=== PATIENT | male | born 1990 | race Caucasian/White ===

== ENCOUNTER 2017-08-02 16:22 | Inpatient (IN) | payer OTHER ==
[~2017-08-02] VITALS: Ht 180.3 cm; Wt 78.0 kg
--- NOTE | 2017-08-02 17:55 | NUR ---
[id number] C/O SEVERE RIGHT FLANK PAIN STARTED 1 HR AGO RADIATING TO THE RIGHT HIP AND LEG. PT DESCRIBES PAIN 8/10 SHARP AND ACUTE IN NATURE. AAOX4. RESP EVEN AND UNLABORED. SKIN DRY WITH DRY LESSIONS NOTED. RESP EVEN AND UNLABORED. NO S/S OF ACUTE DISTRESS NOTED. VSS. AWAITING MD FOR EVAL.
--- NOTE | 2017-08-02 18:00 | NUR ---
ASSISTED FROM WAITING ROOM TO ER BED 09.
--- NOTE | 2017-08-02 18:01 | NUR ---
[id number] C/O SEVERE LEFT FLANK PAIN STARTED 1 HR AGO. FACIAL GRIMACING, GUARDING SITE. C/O 10/10 PAIN. GOWNED AND PLACED ON CONT MONITORING. ALL NEEDS ARE ATTENDED, KEPT WARM AND COMFORTABLE. PENDING ER MD ARROYO
[2017-08-02] MEDS ORDERED: KETOROLAC TROMETHAMINE INJ 30 MG/ML VIAL ONE (18:19)
[2017-08-02] MEDS ORDERED: ONDANSETRON HCL/PF 4 MG/2 ML VIAL ONE ×2 (18:19→20:39)
[2017-08-02] MEDS ORDERED: MORPHINE SULFATE INJ 4 MG/ML DISP.SYRIN ONE (18:20)
[2017-08-02 18:25] LABS: HEMATOCRIT 39 % (39-51); HEMOGLOBIN 13.6 g/dL (13.5-17.5); MEAN CORPUSCULAR HGB CONC 35 g/dl (31.0-36.0); MEAN CORPUSCULAR VOLUME 82 fL (80-96); PLATELET COUNT (AUTO) 347 /CMM (150-450); RDW COEFFICIENT OF VARIATION 13.3 (11.5-15.0); RED BLOOD CELL COUNT(AUTO) 4.73 MIL/uL (4.5-6.0)
[2017-08-02 18:28] LABS: WHITE BLOOD COUNT (AUTO) 30.3 K/uL (4.3-11.0)
[2017-08-02] MEDS ORDERED: IV NS 0.9% 1,000 ML BAG IV ONE ×2 (18:30)
[2017-08-02] MEDS ORDERED: ONDANSETRON HCL/PF 4 MG/2 ML VIAL IVP ONE (18:30)
[2017-08-02] MEDS ORDERED: MORPHINE SULFATE INJ 2 MG/ML DISP.SYRIN IV ONE (18:30)
[2017-08-02] MEDS ORDERED: KETOROLAC TROMETHAMINE INJ 30 MG/ML VIAL IV ONE (18:30)
[2017-08-02] MEDS ORDERED: PIPERACILLIN /TAZOBACTAM 3.375 G VIAL IV ONE (18:40)
[2017-08-02] MEDS ORDERED: PIPERACILLIN /TAZOBACTAM 3.375 G in IV D5W 50 ML IV ONE (19:00)
[2017-08-02 19:02] LABS: INR 1.41 (0.85-1.15)
[2017-08-02 19:33] LABS: BAND % (MANUAL) 15 % (0.0-5.0); LYMPHOCYTES % (MANUAL) 3 % (16-48); MONOCYTES % (MANUAL) 3 % (0-11.0); NEUTROPHILS % (MANUAL) 79 (42-76)
[2017-08-02 19:41] LABS: CALCIUM, SERUM 9.2 mg/dL (8.5-10.1); POTASSIUM 4.1 mmol/L (3.5-5.1)
[2017-08-02 19:47] LABS: ALBUMIN 3.6 g/dL (3.4-5.0); TOTAL PROTEIN, SERUM 8.4 g/dL (6.4-8.2)
[2017-08-02 20:04] LABS: APPEARANCE,URINE Slightly Cloudy (CLEAR); BILIRUBIN,URINE LARGE (NEGATIVE); BLOOD, URINE Negative Ery/uL (NEGATIVE); COLOR,URINE Amber (YELLOW); KETONES,URINE >=160 (NEGATIVE); LEUKOCYTE ESTERASE ,URINE Negative (NEGATIVE); NITRITE, URINE Negative (NEGATIVE); PROTEIN,URINE 100 mg/dl (NEGATIVE); UGLUCOSE Negative (NEGATIVE)
[2017-08-02] MEDS ORDERED: ONDANSETRON HCL/PF 4 MG/2 ML VIAL IV ONE (20:30)
[2017-08-02] MEDS ORDERED: HYDROMORPHONE INJ 0.5 MG/0.5 ML SYRINGE IV ONE (20:30)
[2017-08-02 20:34] LABS: RBC,URINE NONE SEEN /HPF (0-2)
[2017-08-02 20:35] LABS: BACTERIA,URINE Few /HPF (None Seen); MUCUS,URINE Moderate /LPF (None Seen); SQUAMOUS EPITHELIAL CELL,UR Few /HPF (None Seen)
[2017-08-02] MEDS ORDERED: HYDROMORPHONE INJ 2 MG/ML DISP.SYRIN ONE (20:39)
--- NOTE | 2017-08-02 20:44 | NUR ---
PT TO CT
--- NOTE | 2017-08-02 20:55 | NUR ---
PT BACK FROM CT, WENT TO THE RESTROOM.
[2017-08-02] MEDS ORDERED: VANCOMYCIN 1 GM in IV D5W 250 ML IV ONE (21:00)
[2017-08-02] MEDS ORDERED: VANCOMYCIN 1 GM VIAL ONE (21:20)
--- NOTE | 2017-08-02 22:38 | NUR ---
Patient is resting comfortably in bed with eyes closed. Easily aroused. VSS
--- NOTE | 2017-08-02 22:45 | NUR ---
RECRUITMENT ASSISTANT BEDSIDE
--- NOTE | 2017-08-02 23:29 | NUR ---
Patient is resting comfortably in bed with eyes closed. Easily aroused. VSS. No S/S of discomfort noted in pt.
--- NOTE | 2017-08-02 23:40 | NUR ---
BED 316-2
--- NOTE | 2017-08-02 23:49 | NUR ---
REPORT GIVEN TO AVE ARORA FOR ALLI.
[2017-08-02] MEDS ORDERED: IV D5W 1,000 ML IV PRN (23:50)
[2017-08-03] MEDS ORDERED: MAG HYDROX/AL HYDROX/SIMETH 30 ML UDC PO PRN
[2017-08-03] MEDS ORDERED: ONDANSETRON HCL/PF 4 MG/2 ML VIAL IVP PRN
[2017-08-03] MEDS ORDERED: MAGNESIUM HYDROXIDE 30 ML UDC PO PRN
--- NOTE | 2017-08-03 00:05 | NUR ---
ARTIST MANAGER NOTES PT ARRIVED ON TO THE UNIT AT 0005 VIA WHEELCHAIR. PT APPEARS TO BE ALTERED. PT COMPLAINTS OF RIGHT LOWER BACK PAIN FOR X3 DAYS. PT IS ALERT BUT SPEECH IS DELAYED. PT IS TELE MONITORED AT [facility]. PT HAS A RIGHT FOREARM #18 IV, INTACT AND PATENT. PT IS AMBULATORY. PT HAS SCROTAL REDNESS AND A SCAB ON HIS RIGHT PINKY. BOTH DOCUMENT AND PICTURES ARE IN THE CHART. PT ORIENTED TO THE USE OF THE CALL LIGHT. ALL PT BELONGINGS ARE DOCUMENTED AND ACCOUNTED FOR. SAFETY PRECAUTIONS IN PLACE. BED IN LOW, LOCKED POSITION X2 SIDE RAILS UP. CALL LIGHT WITHIN REACH. WILL CONTINUE TO MONITOR.
[2017-08-03 00:15] VITALS: BP 111/83
[2017-08-03] MEDS ORDERED: PIPERACILLIN /TAZOBACTAM 3.375 G in IV D5W 100 ML IV SCH (00:30)
[2017-08-03] MEDS: IV NS 0.9% 1,000 ML IV SCH ×3 (00:44→20:24)
[2017-08-03] MEDS: LORAZEPAM INJ 2 MG/ML VIAL IV PRN ×5 (01:28→16:42)
[2017-08-03] MEDS: ACETAMINOPHEN 325 MG TABLET PO PRN (01:28)
--- NOTE | 2017-08-03 01:28 | NUR ---
RN NOTES PT HAD A FEVER OF 102.6. WILL ADMINISTER TYLENOL AND CONTINUE TO MONITOR. PT ALSO NOTICEABLY AGITATED WILL ADMINISTER PRN ATIVAN AND CONTINUE TO MONITOR.
[2017-08-03 04:00] VITALS: BP 105/68
[2017-08-03] MEDS ORDERED: PIPERACILLIN /TAZOBACTAM 3.375 G VIAL IV ONE (04:46)
[2017-08-03] MEDS: PIPERACILLIN /TAZOBACTAM 3.375 G in IV NS 0.9% 50 ML IV SCH ×3 (06:00→18:55)
[2017-08-03] MEDS ORDERED: PIPERACILLIN /TAZOBACTAM 3.375 G in IV D5W 50 ML IV SCH (06:00)
--- NOTE | 2017-08-03 06:51 | NUR ---
RN CLOSING NOTES PT APPEARS TO DETOXING. PT IS TELE MONITORED AT [facility]. PT HAS A RIGHT FOREARM #18 IV, INTACT AND PATENT. PT IS AMBULATORY. SAFETY PRECAUTIONS IN PLACE. BED IN LOW, LOCKED POSITION X2 SIDE RAILS UP. CALL LIGHT WITHIN REACH. WILL ENDORSE TO DAY SHIFT NURSE FOR CONTINUITY OF CARE.
[2017-08-03 07:19] LABS: HEMATOCRIT 35 % (39-51); HEMOGLOBIN 11.9 g/dL (13.5-17.5); LYMPHOCYTES # (AUTO) 0.7 /CMM (0.8-4.8); LYMPHOCYTES % (AUTO) 2.3 % (20.0-44.0); MEAN CORPUSCULAR HGB CONC 34 g/dl (31.0-36.0); MEAN CORPUSCULAR VOLUME 84 fL (80-96); MONOCYTES # (AUTO) 1.2 /CMM (0.1-1.30); MONOCYTES % (AUTO) 4.1 % (2.0-12.0); NEUTROPHILS # (AUTO) 26.6 /CMM (1.8-8.9); NEUTROPHILS % (AUTO) 93.6 % (43.0-81.0); PLATELET COUNT (AUTO) 289 /CMM (150-450); RDW COEFFICIENT OF VARIATION 14.6 (11.5-15.0); RED BLOOD CELL COUNT(AUTO) 4.22 MIL/uL (4.5-6.0); WHITE BLOOD COUNT (AUTO) 28.5 K/uL (4.3-11.0)
--- NOTE | 2017-08-03 07:31 | NUR ---
CONTINUITY PERSON OPENING NOTE RECEIVED BEDSIDE SBAR REPORT OF ON THE PATIENT. PATIENT IS A/O X2, CONFUSED, FORGETFUL, ASLEEP EASILY AWAKEN IN BED. CHEST IS RISING EQUALLY, BILATERALLY. DENIES ANY PAIN AT THIS TIME. NO C/O SOB, N/V. IV SITE INTACT, NO INFILTRATION NOTED. ABDOMINAL DRESSING CLEAN AND DRY. PATIENT IS IN BED. BED IS LOCKED IN LOWEST POSITION, SIDE RAILS UP X3, BED ALARM IS ON. SITTER AT THE BEDSIDE. CALL LIGHT WITHIN REACH. PATIENT EDUCATED TO CALL FOR ASSISTANCE USING THE CALL LIGHT AND VERBALIZED UNDERSTANDING. WILL CONTINUE TO ASSESS/MONITOR THROUGHOUT THE SHIFT. Addendum: 08/03/17 at 1903 by RAVI GARCIA RN PATIENT DOES NOT HAVE AN ABDOMINAL DRESSING.
[2017-08-03 07:44] LABS: THYROID STIMULATING HORMONE 1.279 uIU/mL (0.358-3.74)
[2017-08-03 07:49] LABS: MAGNESIUM 1.7 mg/dL (1.8-2.4); PHOSPHORUS 2.9 mg/dL (2.5-4.9)
[2017-08-03 08:00] VITALS: BP 102/68
[2017-08-03] MEDS ORDERED: FEE PK DOSING 1 MIN EA MC ONE (08:10)
--- NOTE | 2017-08-03 08:50 | NUR ---
ZOSYN DOCUMENTED NON-ADMINISTERED PER ANICETO IN PHARMACY WORKERS COMPENSATION EXAMINER NURSE REPORTED LAST DOSE ADMINISTERED AT 0517.
[2017-08-03] MEDS: VANCOMYCIN 1.25 GM in IV D5W 500 ML IV SCH ×2 (08:59→16:42)
[2017-08-03] MEDS: PANTOPRAZOLE 40 MG VIAL IV SCH (09:00)
--- NOTE | 2017-08-03 09:05 | NUR ---
PATIENT PRESENTED WITH S/S OF ANXIETY SUCH UNEASINESS, DIAPHORESIS, CONSTANT MOVEMENT OF BLE IN BED AND FINE HAND TREMORS. ATIVAN ADMINISTERED ORDERED.
--- NOTE | 2017-08-03 09:13 | NUR ---
ECHO AT THE BEDSIDE.
[2017-08-03 09:43] LABS: BAND % (MANUAL) 14 % (0.0-5.0); LYMPHOCYTES % (MANUAL) 2 % (16-48); MONOCYTES % (MANUAL) 7 % (0-11.0); MYELOCYTES % 1 % (0-0); NEUTROPHILS % (MANUAL) 76 (42-76)
[2017-08-03] MEDS: Magnesium 1GM/D5W 100ML PREMIX 100 ML IV SCH ×2 (11:17→12:27)
--- NOTE | 2017-08-03 11:19 | NUR ---
ADMINISTRING MAGNESIUM PASSED SCHEDULED TIME NOT TO INTERFERE WITH [facility] ADMINISTRATION.
--- NOTE | 2017-08-03 13:51 | NUR ---
PRESENTS WITH S/S OF WITHDRAWAL SUCH DIAPHORESIS, TREMORS AND ANXIETY. ADMINISTERING ATIVAN ORDERED.
--- NOTE | 2017-08-03 14:27 | NUR ---
Social service consult requested by BAR Duarte for drug use. Pt. is a 26 year old male who was admitted to [facility] for intractable flank pain. SW and case liner Gilda العراقي met with pt. bedside. Pt. is alert and oriented x 2. Pt. is very lethargic and unable to provide needful information at this time. SW to reassess pt. tomorrow when he is more alert and oriented. Pt. has a sitter bedside.
[2017-08-03 16:00] VITALS: BP 109/51
--- NOTE | 2017-08-03 16:44 | NUR ---
PRESENTS WITH S/S OF WITHDRAWAL. ATIVAN ADMINISTERED ORDERED.
--- NOTE | 2017-08-03 19:02 | NUR ---
MS RN CLOSING NOTE PATIENT IS A/O X2, CONFUSED, FORGETFUL, ASLEEP EASILY AWAKEN IN BED. CHEST IS RISING EQUALLY, BILATERALLY. DENIES ANY PAIN AT THIS TIME. NO C/O SOB, N/V. IV SITE INTACT, NO INFILTRATION NOTED. PATIENT IS IN BED. BED IS LOCKED IN LOWEST POSITION, SIDE RAILS UP X3, BED ALARM IS ON. SITTER AT THE BEDSIDE. CALL LIGHT WITHIN REACH. PATIENT EDUCATED TO CALL FOR ASSISTANCE USING THE CALL LIGHT AND VERBALIZED UNDERSTANDING. NO SIGNIFICANT CHANGES THROUGHOUT THE SHIFT. WILL ENDORSE TO THE BEAM DYER OPERATOR NURSE FOR ALLI.
--- NOTE | 2017-08-03 19:15 | NUR ---
RN OPENING NOTES PATIENT IN SLEEPING COMFORTABLY IN BED, AROUSABLE, BREATHING EVEN AND UNLABORED AND IN NO ACUTE DISTRESS. BED IN LOW POSITION, LOCKED IN PLACE, SEIZURE PRECAUTIONS IN PLACE WITH SITTER AT BEDSIDE. WILL CONTINUE TO MONITOR.
[2017-08-03 20:00] VITALS: BP 96/53
--- NOTE | 2017-08-03 20:49 | NUR ---
RN NOTE PATIENT NOTED WITH 99.9F TEMP, ALSO VERBALIZED THAT HE HAS A HEADACHE. UPON ADMINISTERING MEDICATION, PT VERBALIZED THAT HE IS OKAY, EXPLAINED RISKS AND BENEFITS TO PT BUT PT CONTINUES TO SAY HE IS OKAY RIGHT NOW. RESPECTED PATIENT. WILL CONTINUE TO MONITOR. TYLENOL 650 MG= 2TABS WASTED.
[2017-08-04] MEDS: PIPERACILLIN /TAZOBACTAM 3.375 G in IV NS 0.9% 50 ML IV SCH ×5 (00:01→23:44)
[2017-08-04] MEDS: VANCOMYCIN 1.25 GM in IV D5W 500 ML IV SCH ×3 (01:00→16:40)
[2017-08-04] MEDS: IV NS 0.9% 1,000 ML IV SCH ×2 (06:38→16:40)
--- NOTE | 2017-08-04 06:53 | NUR ---
RN CLOSING NOTES PATIENT ASLEEP IN BED, AROUSABLE, VERBALLY RESPONSIVE, IN NO ACUTE DISTRESS AT THIS TIME, NO SOB, NO EPISODE OF SEIZURE WITHIN THE SHIFT AND WITH SITTER AT BEDSIDE AT ALL TIMES.PATIENT CONTINUES TO RECEIVE IVF ORDERED VIA RFA G18, INFUSING WELL. PLACED BED IN LOW POSITION, SEIZURE PRECAUTIONS IN PLACE. CALL LIGHT IN EASY REACH. WILL ENDORSE TO AM SHIFT NURSE FOR CONTINUITY OF CARE.
--- NOTE | 2017-08-04 07:20 | NUR ---
MS RN OPENING NOTE RECEIVED BEDSIDE SBAR REPORT OF ON THE PATIENT. PATIENT IS A/O X2, CONFUSED, FORGETFUL, ASLEEP EASILY AWAKEN IN BED. CHEST IS RISING EQUALLY, BILATERALLY. DENIES ANY PAIN AT THIS TIME. NO C/O SOB, N/V. IV SITE INTACT, NO INFILTRATION NOTED. PATIENT IS IN BED. BED IS LOCKED IN LOWEST POSITION, SIDE RAILS UP X3, BED ALARM IS ON. SITTER AT THE BEDSIDE. CALL LIGHT WITHIN REACH. PATIENT EDUCATED TO CALL FOR ASSISTANCE USING THE CALL LIGHT AND VERBALIZED UNDERSTANDING. WILL CONTINUE TO ASSESS/MONITOR THROUGHOUT THE SHIFT.
[2017-08-04 08:00] VITALS: BP 92/52
[2017-08-04 08:27] LABS: BASOPHILS % (AUTO) 0.1 % (0.0-2.0); EOSINOPHILS % (AUTO) 0.3 % (0.0-6.0); HEMATOCRIT 33 % (39-51); HEMOGLOBIN 11.1 g/dL (13.5-17.5); LYMPHOCYTES # (AUTO) 1.2 /CMM (0.8-4.8); LYMPHOCYTES % (AUTO) 3.9 % (20.0-44.0); MEAN CORPUSCULAR HGB CONC 33 g/dl (31.0-36.0); MEAN CORPUSCULAR VOLUME 84 fL (80-96); MONOCYTES # (AUTO) 1.1 /CMM (0.1-1.30); MONOCYTES % (AUTO) 3.6 % (2.0-12.0); NEUTROPHILS # (AUTO) 27.2 /CMM (1.8-8.9); NEUTROPHILS % (AUTO) 92.1 % (43.0-81.0); PLATELET COUNT (AUTO) 292 /CMM (150-450); RED BLOOD CELL COUNT(AUTO) 3.99 MIL/uL (4.5-6.0); WHITE BLOOD COUNT (AUTO) 29.5 K/uL (4.3-11.0)
[2017-08-04 08:37] LABS: ALBUMIN 2.3 g/dL (3.4-5.0); BILIRUBIN,DIRECT 1.2 mg/dL (0.0-0.2); BILIRUBIN,TOTAL 1.8 mg/dL (0.2-1.0); CALCIUM, SERUM 8.6 mg/dL (8.5-10.1); CREATININE 1.2 mg/dL (0.6-1.3); MAGNESIUM 2.6 mg/dL (1.8-2.4); POTASSIUM 3.6 mmol/L (3.5-5.1); TOTAL PROTEIN, SERUM 6.5 g/dL (6.4-8.2)
[2017-08-04] MEDS: LORAZEPAM INJ 2 MG/ML VIAL IV PRN ×2 (08:39→16:53)
[2017-08-04] MEDS: PANTOPRAZOLE 40 MG VIAL IV SCH (08:39)
--- NOTE | 2017-08-04 08:39 | NUR ---
PATIENT PRESENTED WITH S/S OF WITHDRAWAL SUCH HAND TREMORS, DIAPHORESIS, AGITATION, UNEASINESS. ATIVAN ADMINISTERED PRESCRIBED.
[2017-08-04 10:20] LABS: BAND % (MANUAL) 19 % (0.0-5.0); LYMPHOCYTES % (MANUAL) 4 % (16-48); MONOCYTES % (MANUAL) 4 % (0-11.0); NEUTROPHILS % (MANUAL) 73 (42-76)
[2017-08-04] MEDS: Z GUARD REMEDY 2 OZ OINT TP PRN ×2 (12:36→17:04)
--- NOTE | 2017-08-04 16:33 | NUR ---
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
--- NOTE | 2017-08-04 16:55 | NUR ---
PATIENT PRESENTS WITH S/S OF WITHDRAWAL. ATIVAN ADMINISTERED ORDERED.
--- NOTE | 2017-08-04 17:00 | NUR ---
PRESENTS WITH TEMPERATURE 100.9F. TYLENOL BEING ADMINISTERED ORDERED.
[2017-08-04] MEDS: ACETAMINOPHEN 325 MG TABLET PO PRN (17:03)
--- NOTE | 2017-08-04 19:40 | NUR ---
SPOKE TO BENJAMÍN PEREZ. RECEIVED ORDER FOR BACTROBAN. READ BACK AND VERIFIED.
--- NOTE | 2017-08-04 19:45 | NUR ---
MS/POLICE MANAGER; RECEIVED PT'S REPORTS FROM THE DAY SHIFT RN FOR CONTINUITY OF CARE. AT THIS TIME. PT IS SLEEPING I DID TRY TO WAKE UP THE PT. AND HE WOKE UP AND VERBALLY RESPONSIVE COHERENTLY. BREATHING NON LABORED. DENIES PAIN. THEN BACK TO SLEEP. IVF ON PROGRESS. BED ON LOWER POSITION AND LOCKED FOR SAFETY. SIDE RAILS ARE UP X 3 FOR SAFETY. PT REMINDED TO CALL WHEN HE NEEDS HELP AND CALL LIGHT WITHIN REACH. ON CONTACT ISOLATION OBSERVED. WILL CONTINUE TO MONITOR.
--- NOTE | 2017-08-04 19:48 | NUR ---
MS RN CLOSING NOTE BEDSIDE SBAR REPORT GIVEN TO NEWTON COPELAND. PATIENT IS CURRENTLY ON CONTACT ISOLATION FOR MRSA NARES. PATIENT IS A/O X4 FORGETFUL. ASLEEP EASILY AWAKEN IN BED. CHEST IS RISING EQUALLY, BILATERALLY. DENIES ANY PAIN AT THIS TIME. NO C/O SOB, N/V. IV SITE INTACT, NO INFILTRATION NOTED. PATIENT IS IN BED. BED IS LOCKED IN LOWEST POSITION, SIDE RAILS UP X3, BED ALARM IS ON. CALL LIGHT WITHIN REACH. PATIENT EDUCATED TO CALL FOR ASSISTANCE USING THE CALL LIGHT AND VERBALIZED UNDERSTANDING. NO SIGNIFICANT CHANGES THROUGHOUT THE SHIFT.ENDORSED TO THE LAB ANALYST NURSE FOR ALLI.
--- NOTE | 2017-08-04 19:55 | NUR ---
MS/RAILROAD CAR CLEANING SUPERVISOR; BENJAMÍN PEREZ NP WENT TO THE PT'S ROOM AND HE TALKED TO THE PT.
[2017-08-04 20:00] VITALS: BP 97/54
[2017-08-04] MEDS: MUPIROCIN OINT 2% 22 GM TUBE SCH (20:56)
[2017-08-04] MEDS ORDERED: Thiamine 100 MG in IV D5W 50 ML IV ONE (21:00)
[2017-08-05] MEDS: VANCOMYCIN 1.25 GM in IV D5W 500 ML IV SCH ×2 (00:30→08:46)
[2017-08-05] MEDS: IV NS 0.9% 1,000 ML IV SCH ×3 (02:28→23:36)
[2017-08-05] MEDS: ACETAMINOPHEN 325 MG TABLET PO PRN ×2 (02:28→20:50)
--- NOTE | 2017-08-05 02:30 | NUR ---
MS/SEARCH ENGINE MARKETING MANAGER; PT ENDORSED TO THE RN FOR CONTINUITY OF CARE. PT QUIET AND SLEEPY AT TIMES BUT AROUSABLE. IVF ON PROGRESS. NO SEIZURE'S ACTIVITIES NOTED. ON CONTACT ISOLATION OBSERVED.
[2017-08-05] MEDS: PIPERACILLIN /TAZOBACTAM 3.375 G in IV NS 0.9% 50 ML IV SCH ×4 (05:03→23:36)
--- NOTE | 2017-08-05 06:31 | NUR ---
MS RN CLOSING NOTES NEEDS MET AND RENDERED. AWAKE AND RESPONSIVE, AFEBRILE. RESPIRATIONS ARE EVEN AND UNLABORED, NOT IN ANY ACUTE DISTRESS NOTED. DENIES ANY PAIN AT THIS TIME. IV SITE INTACT, NO INFILTRATION NOTED. DRESSING KEPT CLEAN AND DRY. SAFETY MEASURES ARE IN PLACE. REMINDED PT TO USE CALL LIGHT WHEN ASSISTANCE IS NEEDED, CALL LIGHT IS LEFT WITHIN REACH. WILL ENDORSE TO NEXT SHIFT FOR CONTINUITY OF CARE.
--- NOTE | 2017-08-05 07:29 | NUR ---
MS RN OPENING NOTES RECEIVED PATIENT IN STABLE CONDITION. IN NO APPARENT DISTRESS. BEDSIDE RAILS ARE UPX2. BED IS LOCKED AND LOWERED. CALL LIGHT IS WITHIN REACH. PATIENT IS RESTING IN BED COMFORTABLY. WILL CONTINUE TO MONITOR.
[2017-08-05 07:43] LABS: BASOPHILS % (AUTO) 0.1 % (0.0-2.0); EOSINOPHILS % (AUTO) 0.5 % (0.0-6.0); HEMATOCRIT 32 % (39-51); HEMOGLOBIN 10.6 g/dL (13.5-17.5); LYMPHOCYTES # (AUTO) 1.1 /CMM (0.8-4.8); LYMPHOCYTES % (AUTO) 4.5 % (20.0-44.0); MEAN CORPUSCULAR HGB CONC 34 g/dl (31.0-36.0); MEAN CORPUSCULAR VOLUME 84 fL (80-96); MONOCYTES # (AUTO) 1.3 /CMM (0.1-1.30); MONOCYTES % (AUTO) 5.5 % (2.0-12.0); NEUTROPHILS # (AUTO) 21.9 /CMM (1.8-8.9); NEUTROPHILS % (AUTO) 89.4 % (43.0-81.0); PLATELET COUNT (AUTO) 307 /CMM (150-450); RDW COEFFICIENT OF VARIATION 14.6 (11.5-15.0); RED BLOOD CELL COUNT(AUTO) 3.79 MIL/uL (4.5-6.0); WHITE BLOOD COUNT (AUTO) 24.5 K/uL (4.3-11.0)
[2017-08-05 07:58] LABS: CALCIUM, SERUM 7.9 mg/dL (8.5-10.1); CREATININE 1.3 mg/dL (0.6-1.3); POTASSIUM 3.2 mmol/L (3.5-5.1)
[2017-08-05 08:00] VITALS: BP 94/58
[2017-08-05] MEDS: THIAMINE HCL 100 MG TABLET PO SCH (08:49)
[2017-08-05] MEDS: PANTOPRAZOLE 40 MG VIAL IV SCH (08:49)
[2017-08-05] MEDS: MUPIROCIN OINT 2% 22 GM TUBE SCH ×2 (09:00→20:50)
--- NOTE | 2017-08-05 09:30 | NUR ---
CALLED PHARMACY TO PROVIDE BACTROBAN. PHARMACY WILL PROVIDE.
--- NOTE | 2017-08-05 10:00 | NUR ---
BACTROBAN NOT PROVIDED YET BY PHARMACY. BACTROBAN NOT ADMINISTERED. WILL ADMINISTER WHEN PHARMACY PROVIDES BACTROBAN.
[2017-08-05 10:06] LABS: BAND % (MANUAL) 10 % (0.0-5.0); LYMPHOCYTES % (MANUAL) 6 % (16-48); MONOCYTES % (MANUAL) 7 % (0-11.0); NEUTROPHILS % (MANUAL) 77 (42-76)
[2017-08-05] MEDS: POTASSIUM CHLORIDE 20 MEQ TAB.PRT.SR PO SCH ×2 (10:56→10:57)
--- NOTE | 2017-08-05 11:23 | NUR ---
SW met with pt. bedside. Pt. is much more alert today than in the past few day. Pt. stated he is feeling much better today. Pt. states he resides at a sober living located at [address] [place] [address] [place] [id number]. Pt's emergency contact is Marco . Pt. informed SW he will be going back to his sober living once he is medically cleared for discharge. Pt. has a history of drug use. Pt. states he takes 3 to 4 pills of Xanax daily. Pt. denies alcohol abuse.Pt. was at a detox facility for two weeks but is unable to recall the name of the facility. Pt. has a psychiatric diagnosis of Anxiety, Bipolar and PTSD. Pt. denies suicidal and homicidal ideations and visual/auditory hallucinations at this time. No other social service needs are required at this time. SW is available if needed.
[2017-08-05] MEDS: VANCOMYCIN 1 GM in IV D5W 250 ML IV SCH (15:13)
[2017-08-05] MEDS: LORAZEPAM INJ 2 MG/ML VIAL IV PRN (15:22)
[2017-08-05 16:00] VITALS: BP 102/54
[2017-08-05] MEDS: LACTOBACILLUS RHAMNOSUS GG 1 EACH CAP.SPRINK PO SCH (17:03)
--- NOTE | 2017-08-05 18:26 | NUR ---
MS RN CLOSING NOTES PATIENT IS RESTING IN NO APPARENT DISTRESS. BEDSIDE RAILS ARE UPX2. BED IS LOCKED AND LOWERED. CALL LIGHT IS WITHIN REACH. ALL NEEDS WERE MET. IV LINE IS PATENT AND INTACT. WILL ENDORSE CARE TO STAFF ENGINEER NURSE FOR ALLI.
--- NOTE | 2017-08-05 19:41 | NUR ---
RN OPENING NOTES RECEIVED REPORT FROM DAYSHIFT RN KIRSTEN. FOUND Pt AWAKE IN BED. NO S/S OF ACUTE DISTRESS OR SOB NOTED. Pt IS A/OX4, VERBAL, ABLE TO MAKE NEEDS KNOWN. IV ACCESS ON RFA #18G. SAFETY MEASURES IN PLACE. BED LOW, LOCKED, HOB ELEVATED, SIDE RAILS UP, CALL LIGHT AND BEDSIDE TABLE WITHIN REACH. WILL CONTINUE TO MONITOR Pt THROUGHOUT THE NIGHT FOR SAFETY.
[2017-08-05 20:00] VITALS: BP 115/69
[2017-08-05] MEDS: FLUCONAZOLE (100 MG) 100 MG TABLET PO SCH (20:50)
--- NOTE | 2017-08-05 23:28 | NUR ---
RN NOTES STARTED NEW IV ACCESS ON L HAND #22G. REMOVED OLD INFILTRATED IV ON RFA. SECURED WITH GAUZE AND TAPE.
[2017-08-06] MEDS: VANCOMYCIN 1 GM in IV D5W 250 ML IV SCH ×2 (01:14→08:00)
[2017-08-06] MEDS: PIPERACILLIN /TAZOBACTAM 3.375 G in IV NS 0.9% 50 ML IV SCH ×4 (05:57→23:33)
[2017-08-06] MEDS: LORAZEPAM INJ 2 MG/ML VIAL IV PRN ×3 (05:57→22:29)
--- NOTE | 2017-08-06 06:30 | NUR ---
RN CLOSING NOTES NO SIGNIFICANT CHANGES IN Pt's CONDITION. NO S/S OF ACUTE DISTRESS OR SOB NOTED DURING THE NIGHT. ALL NEEDS MET AND ATTENDED TO. SAFETY MEASURES IN PLACE. WILL ENDORSE TO DAYSHIFT RN FOR Pt's ALLI.
--- NOTE | 2017-08-06 07:40 | NUR ---
MS RN OPENING NOTES RECEIVED PT FROM NIGHTSHIFT NURSE IN STABLE CONDITION. PT IS A/O X3. NO SOB OR SIGNS OF DISTRESS NOTED. BREATHING IS EVEN AND UNLABORED. HE DENIES PAIN AT THIS TIME. IV TO LEFT HAND NOTED TO BE PATENT AND INTACT. PT CURRENTLY RECEIVING NS INFUSION @ 100ML/HR. HE IS TOLERATING INFUSION WELL. BED IN LOW LOCKED POSITION, SIDE RAILS UP X2, CALL LIGHT WITHIN REACH, BED ALARM ON, ISOLATION PRECAUTIONS OBSERVED. WILL CONTINUE TO MONITOR.
[2017-08-06 07:47] LABS: CREATININE 1.4 mg/dL (0.6-1.3); POTASSIUM 3.2 mmol/L (3.5-5.1)
[2017-08-06 08:00] VITALS: BP 119/75
--- NOTE | 2017-08-06 08:49 | NUR ---
[facility] 0900 J LUIS HELD PT'S TROUGH IS 31. PHARMACIST MADE AWARE
[2017-08-06] MEDS: IV NS 0.9% 1,000 ML IV SCH ×2 (08:53→17:13)
[2017-08-06] MEDS: PANTOPRAZOLE 40 MG VIAL IV SCH (08:53)
[2017-08-06] MEDS: THIAMINE HCL 100 MG TABLET PO SCH (08:53)
[2017-08-06] MEDS: MUPIROCIN OINT 2% 22 GM TUBE SCH ×2 (08:53→20:38)
[2017-08-06] MEDS: FLUCONAZOLE (100 MG) 100 MG TABLET PO SCH (08:54)
[2017-08-06] MEDS: LACTOBACILLUS RHAMNOSUS GG 1 EACH CAP.SPRINK PO SCH ×2 (08:54→17:13)
[2017-08-06] MEDS: NYSTATIN (PYXIS) 500,000 UNIT/5 ML ORAL.SUSP PO SCH ×3 (08:54→17:13)
[2017-08-06] MEDS: ACETAMINOPHEN 325 MG TABLET PO PRN ×3 (08:54→22:29)
[2017-08-06] MEDS ORDERED: POTASSIUM CHLORIDE 20 MEQ TAB.PRT.SR PO ONE (09:30)
[2017-08-06 16:00] VITALS: BP 132/74
[2017-08-06] MEDS: VANCOMYCIN 0.75 GM in IV D5W 250 ML IV SCH (17:57)
--- NOTE | 2017-08-06 18:18 | NUR ---
MS RN CLOSING NOTES PT REMAINS STABLE. NO ACUTE CHANGES IN CONDITION THROUGHOUT SHIFT. VITALS REMAINED STABLE. ALL NEEDS WERE ANTICIPATED FRO AND MET. PAIN WAS CONTROLLED AND MANAGED WITH HEATING PADS AND TYLENOL. ALL DUE MEDS WERE GIVEN. WOUND AND SKIN CARE RENDERED ORDERED. ELECTROLYTES REPLACED DURING SHIFT. NO CHANGES IN PT'S MENTATION. WILL ENDORSE TO NIGHTSHIFT NURSE FOR ALLI
--- NOTE | 2017-08-06 19:30 | NUR ---
RN/ MS NOTES: RECEIVED PT. IN BED SLEEPING W/ RESPIRATIONS EVEN AND UNLABORED. DENIES ANY C/O CHEST PAIN OR SOB AT PRESENT. RA SAT. 98%. A/O X 3. IV TO LEFT HAND G 22 PATENT AND INTACT W/ NO S/S OF INFECTION/INFILTRATION NOTED. W/ IVF OF NS @ 100ML/HR. CALL LIGHT W/ REACH. ALL NEEDS MEET. BEDS LOCKED AND IN LOW POSITION. WILL CONTINUE TO MONITOR.
[2017-08-06 20:00] VITALS: BP 135/71
[2017-08-07] VITALS: BP 105/57
[2017-08-07 00:20] VITALS: BP 135/71
[2017-08-07] MEDS: IV NS 0.9% 1,000 ML IV SCH ×3 (04:00→23:47)
[2017-08-07] MEDS: PIPERACILLIN /TAZOBACTAM 3.375 G in IV NS 0.9% 50 ML IV SCH ×4 (04:58→23:41)
[2017-08-07] MEDS: VANCOMYCIN 0.75 GM in IV D5W 250 ML IV SCH ×3 (06:00→17:28)
--- NOTE | 2017-08-07 07:08 | NUR ---
RN/MS NOTES: NO ACUTE CHANGES NOTED DURING THIS SHIFT. REPORT GIVEN TO AM NURSE FOR ALLI.
--- NOTE | 2017-08-07 07:09 | NUR ---
RN/ MS NOTES: PATIENT RESTING IN ROOM. NONLABORED BREATHING NOTED ON ROOM AIR. PATIENT AOX3. IV SITE ON LEFT HAND GAUGE 22 PATENT AND INTACT. BED IN LOWEST LOCKED POSITION. CALL LIGHT WITHIN REACH. SAFETY PRECAUTIONS IMPLEMENTED. WILL CONTINUE TO MONITOR
[2017-08-07 07:44] LABS: BASOPHILS # (AUTO) 0.1 /CMM (0.0-0.2); BASOPHILS % (AUTO) 0.3 % (0.0-2.0); EOSINOPHILS % (AUTO) 0.5 % (0.0-6.0); HEMATOCRIT 33 % (39-51); HEMOGLOBIN 11.1 g/dL (13.5-17.5); LYMPHOCYTES # (AUTO) 1.2 /CMM (0.8-4.8); LYMPHOCYTES % (AUTO) 5.2 % (20.0-44.0); MEAN CORPUSCULAR HGB CONC 34 g/dl (31.0-36.0); MEAN CORPUSCULAR VOLUME 82 fL (80-96); MONOCYTES # (AUTO) 2.1 /CMM (0.1-1.30); MONOCYTES % (AUTO) 9.1 % (2.0-12.0); NEUTROPHILS # (AUTO) 19.8 /CMM (1.8-8.9); NEUTROPHILS % (AUTO) 84.9 % (43.0-81.0); PLATELET COUNT (AUTO) 360 /CMM (150-450); RDW COEFFICIENT OF VARIATION 14.9 (11.5-15.0); RED BLOOD CELL COUNT(AUTO) 4.08 MIL/uL (4.5-6.0); WHITE BLOOD COUNT (AUTO) 23.3 K/uL (4.3-11.0)
[2017-08-07] MEDS: ACETAMINOPHEN 325 MG TABLET PO PRN ×2 (07:52→15:48)
--- NOTE | 2017-08-07 07:55 | NUR ---
RN NOTES: AN ORAL TEMP OF 100 NOTED. TYLENOL GIVEN PER ORDERS. PATIENT SWALLOWING WELL.
[2017-08-07 08:00] VITALS: BP 111/57
[2017-08-07 08:03] LABS: CALCIUM, SERUM 8.4 mg/dL (8.5-10.1); CREATININE 1.4 mg/dL (0.6-1.3); POTASSIUM 4.6 mmol/L (3.5-5.1)
--- NOTE | 2017-08-07 08:55 | NUR ---
RN NOTES: TEMP OF 99.0 F NOTED
[2017-08-07] MEDS: PANTOPRAZOLE 40 MG VIAL IV SCH (09:36)
[2017-08-07] MEDS: MUPIROCIN OINT 2% 22 GM TUBE SCH ×2 (09:36→21:31)
[2017-08-07] MEDS: FLUCONAZOLE (100 MG) 100 MG TABLET PO SCH (09:40)
[2017-08-07] MEDS: LACTOBACILLUS RHAMNOSUS GG 1 EACH CAP.SPRINK PO SCH ×2 (09:40→17:18)
[2017-08-07] MEDS: THIAMINE HCL 100 MG TABLET PO SCH (09:40)
[2017-08-07] MEDS: NYSTATIN (PYXIS) 500,000 UNIT/5 ML ORAL.SUSP PO SCH ×3 (09:41→17:17)
--- NOTE | 2017-08-07 12:52 | NUR ---
CHLAMYDIA URETHRA SWAB: PATIENT STATING THAT "I ALREADY HAVE CHLAMYDIA. I GOT TESTED FOR IT." PATIENT REFUSING ORDERED SWAB. BENEFITS AND RISKS EXPLAINED
[2017-08-07] MEDS: LORAZEPAM INJ 2 MG/ML VIAL IV PRN ×3 (15:42→21:32)
--- NOTE | 2017-08-07 15:52 | NUR ---
RN NOTES: TYLENOL ADMINISTERED FOR A TEMP OF 100.6F PATIENT'S FACIAL EXPRESSIONS INDICATING ANXIOUSNESS. PATIENT ENCOURAGED TO EXPRESS FEELINGS. ATIVAN ADMINISTERED PER ORDERS
[2017-08-07 16:00] VITALS: BP 146/79
--- NOTE | 2017-08-07 17:00 | NUR ---
RN NOTES: TEMPERATURE RECHECKED AT 99.4F. PATIENT REFUSING COOLING MEASURES. PATIENT STATES FEELING LESS ANXIOUS
--- NOTE | 2017-08-07 18:09 | NUR ---
RN NOTES: PATIENT RESTING IN BED. NONLABORED BREATHING NOTED ON ROOM AIR. PATIENT AFEBRILE. IV SITE ON LEFT HAND GAUGE 22 PATENT AND INTACT. PATIENT AOX3. DENIES PAIN AT THE MOMENT. SAFETY AND FALL PRECAUTIONS IMPLEMENTED THROUGHOUT SHIFT. PATIENT ENCOURAGED TO AMBULATE DURING SHIFT PER DR REID'S ORDERS. PATIENT REFUSED STATING HE WANTS TO SLEEP. PATIENT ENCOURAGED TO STAY CLEAN AND DRY WELL. PATIENT BEING MONITORED FOR S/S OF WITHDRAWAL. NO SWEATING NOTED, NO VOMITING NOTED, NO SEIZURES NOTED, NO HALLUCINATIONS NOTED. SPOKE TO RADIOLOGY DEPARTMENT, MRI TO BE DONE TOMORROW MORNING. WILL ENDORSE TO NEXT SHIFT
--- NOTE | 2017-08-07 19:26 | NUR ---
RN NOTES: GIVEN ATIVAN IV AT 1830 FOR ANXIETY.NONLABORED BREATHING NOW ON ROOM AIR. PATIENT STATES THAT HE IS "FEELING BETTER."WILL ENDORSE TO NEXT SHIFT
[2017-08-07 20:00] VITALS: BP 135/71
--- NOTE | 2017-08-07 20:02 | NUR ---
MS RN OPENING NOTE RECEIVED PATIENT IN BED, ALERT ORIENTEDX3, ON ROOM AIR TOLERATING WELL, RESPIRATIONS EVEN AND UNLABORED, IN NO APPARENT DISTRESS AT THIS TIME. DENIES PAIN AT THIS TIME. PATIENT VERBALIZED WANTING TO SLEEP. ISOLATION PREC. OBSERVED FOR MRSA. ON MED SURGE STATUS. PATIENT IS AMBULATORY. LEFT HAND IV 22G WITH NS RUNNING AT 100ML/HR. NO SIGN OF INFILTRATION OBSERVED. PATIENT TO BE MONITORED FOR ALCOHOL WITHDRAWAL SYMPTOMS. ABLE TO VERBALIZE NEEDS. PATIENT APPEARS CALM AND RELAXED AT THIS MOMENT. SAFETY MEASURES IN PLACE, BED IN LOW LOCKED POSITION, SIDE RAILS UP X2, CALL LIGHT WITHIN EASY REACH. WILL CONTINUE TO MONITOR.
[2017-08-08] MEDS: PIPERACILLIN /TAZOBACTAM 3.375 G in IV NS 0.9% 50 ML IV SCH (05:00)
[2017-08-08] MEDS: ACETAMINOPHEN 325 MG TABLET PO PRN (05:03)
--- NOTE | 2017-08-08 05:10 | NUR ---
PATIENT RUNNING FEVER OF 101.2. DOES NOT APPEAR IN DISTRESS, ADMINISTERED TYLENOL 650MG PRN. WILL CONTINUE TO MONITOR.
--- NOTE | 2017-08-08 06:00 | NUR ---
PATIENT FEVER DECREASED TO 100.2. WILL CONTINUE TO MONITOR.
[2017-08-08] MEDS: LORAZEPAM INJ 2 MG/ML VIAL IV PRN (06:14)
[2017-08-08] MEDS: VANCOMYCIN 0.75 GM in IV D5W 250 ML IV SCH (06:14)
--- NOTE | 2017-08-08 06:50 | NUR ---
TEXTED DR. HASKINS FOR MRI APPROVAL.
--- NOTE | 2017-08-08 06:50 | NUR ---
MS RN CLOSING NOTE PATIENT IN BED, ASLEEP, EASILY AROUSED WITH VERBAL AND TACTILE STIMULI, ORIENTEDX3, ON ROOM AIR TOLERATING WELL, RESPIRATIONS EVEN AND UNLABORED, IN NO APPARENT DISTRESS OR DISCOMFORT AT THIS TIME. DENIES PAIN AT THIS TIME. ISOLATION PREC. OBSERVED FOR MRSA. ON MED SURGE STATUS. PATIENT ABLE TO MAKE NEEDS KNOWN. LEFT HAND IV 22G WITH NS RUNNING AT 100ML/HR. NO SIGN OF INFILTRATION OBSERVED. PATIENT TO BE MONITORED FOR ALCOHOL WITHDRAWAL SYMPTOMS. PATIENT STARTED RUNNING FEVER AROUND 0500 OF 101.2, TYLENOL 650MG PRN ADMINISTERED, RECHECKED THE VALUE AT 0600, TEMP DECREASED TO 100.2. PATIENT APPEARS CALM AND RELAXED AT THIS MOMENT. SAFETY MEASURES IN PLACE, BED IN LOW LOCKED POSITION, SIDE RAILS UP X2, CALL LIGHT WITHIN EASY REACH. WILL ENDORSE TO AM NURSE FOR ALLI.
--- NOTE | 2017-08-08 07:29 | NUR ---
RN OPENING NOTES RECEIVED PATIENT IN BED RESTING. NO ACUTE DISTRESS, NO SOB NOTED. NO S/S OF PAIN OR DISCOMFORT.IV SITE INTACT AND PATENT. KEPT PATIENT COMFORTABLE. BED IN LOW/LOCKED POSITION, SIDERAILS UPX2, CALL LIGHT IN REACH. WILL CONTINUE TO MONITOR ACCORDINGLY
[2017-08-08 07:35] LABS: CALCIUM, SERUM 7.9 mg/dL (8.5-10.1); CREATININE 1.4 mg/dL (0.6-1.3); POTASSIUM 3.7 mmol/L (3.5-5.1)
[2017-08-08 07:52] LABS: FERRITIN 315 ng/mL (8-388)
[2017-08-08 07:54] LABS: IRON, SERUM 11 ug/dl (50-175); TOTAL IRON BINDING CAPACITY 162 ug/dl (250-450)
[2017-08-08 08:00] VITALS: BP 135/78
[2017-08-08] MEDS: FLUCONAZOLE (100 MG) 100 MG TABLET PO SCH (08:37)
[2017-08-08] MEDS: LACTOBACILLUS RHAMNOSUS GG 1 EACH CAP.SPRINK PO SCH (08:37)
[2017-08-08] MEDS: THIAMINE HCL 100 MG TABLET PO SCH (08:37)
[2017-08-08] MEDS: NYSTATIN (PYXIS) 500,000 UNIT/5 ML ORAL.SUSP PO SCH (08:38)
[2017-08-08] MEDS: MUPIROCIN OINT 2% 22 GM TUBE SCH (08:39)
[2017-08-08] MEDS: PANTOPRAZOLE 40 MG VIAL IV SCH (08:43)
[2017-08-08] MEDS ORDERED: IV NS 0.9% 1,000 ML IV PRN (09:36)
--- NOTE | 2017-08-08 10:31 | NUR ---
RN NOTES FOUND PATIENT IN THE ROOM WITH IV REMOVED. PER PATIENT, "I TOOK IT OFF, I DON'T WANT ANY OF THIS ANYMORE, AND I WANT TO GO HOME". IV SITE NOT BLEEDING, NO SWELLING, NO COMPLICATIONS. REFUSED IV INSERTION AND IV ABX. EXPLAINED TO THE PATIENT THE RISK AND BENEFIT OF NONCOMPLIANCE WITH CARE, STILL CONTINUE TO REFUSE CARE. EMILIANO REID NP MADE AWARE. WILL CONTINUE MONIOTR ACCORDINGLY
[2017-08-08 11:33] LABS: BASOPHILS % (AUTO) 0.1 % (0.0-2.0); EOSINOPHILS % (AUTO) 0.6 % (0.0-6.0); HEMATOCRIT 30 % (39-51); HEMOGLOBIN 9.9 g/dL (13.5-17.5); LYMPHOCYTES # (AUTO) 1.4 /CMM (0.8-4.8); LYMPHOCYTES % (AUTO) 6.7 % (20.0-44.0); MEAN CORPUSCULAR HGB CONC 33 g/dl (31.0-36.0); MEAN CORPUSCULAR VOLUME 82 fL (80-96); MONOCYTES # (AUTO) 2.4 /CMM (0.1-1.30); MONOCYTES % (AUTO) 11.1 % (2.0-12.0); NEUTROPHILS # (AUTO) 17.2 /CMM (1.8-8.9); NEUTROPHILS % (AUTO) 81.5 % (43.0-81.0); PLATELET COUNT (AUTO) 485 /CMM (150-450); RDW COEFFICIENT OF VARIATION 15.1 (11.5-15.0); RED BLOOD CELL COUNT(AUTO) 3.62 MIL/uL (4.5-6.0); WHITE BLOOD COUNT (AUTO) 21.2 K/uL (4.3-11.0)
[2017-08-08 13:04] LABS: BAND % (MANUAL) 1 % (0.0-5.0); EOSINOPHILS % (MANUAL) 2 % (0-4); LYMPHOCYTES % (MANUAL) 3 % (16-48); MONOCYTES % (MANUAL) 11 % (0-11.0); NEUTROPHILS % (MANUAL) 83 (42-76)
--- NOTE | 2017-08-08 14:01 | NUR ---
RN AMA NOTES PATIENT LEFT AMA. EXPLAINED RISK AND BENEFITS OF LEAVING AMA, PATIENT CONTINUED TO REFUSED. DISCHARGE PAPERWORK GIVEN, ALL BELONGINGS RETURNED, REMOVED NAME BAND. REFUSED SKIN PHOTOS. EMILIANO REID NP, [employer] SERVICE MANAGER, AND [facility] [employer] TECHNICIAN AWARE. ACCOMPANIED BY ELBA SALDANA, LEFT VIA UBER.
== END 2017-08-08 14:09 | disposition left against medical advice (07) | DRG 871 ==
LOC: ER 16:24 → MED 23:55 → TELE 08-03 03:06 → MED 08-03 09:41
PROVIDERS: ADMIT Registered Nurse; ATTEND Registered Nurse
DX: A41.9 Sepsis, unspecified organism (principal); G93.40 Encephalopathy, unspecified; N17.9 Acute kidney failure, unspecified; B37.0 Candidal stomatitis; E87.1 Hypo-osmolality and hyponatremia; E44.1 Mild protein-calorie malnutrition; N39.0 Urinary tract infection, site not specified; F10.259 Alcohol dependence with alcohol-induced psychotic disorder, unspecified; F19.129 Other psychoactive substance abuse with intoxication, unspecified; E86.0 Dehydration; Z22.322 Carrier or suspected carrier of Methicillin resistant Staphylococcus aureus; E86.1 Hypovolemia; R59.0 Localized enlarged lymph nodes; K70.9 Alcoholic liver disease, unspecified; E87.6 Hypokalemia
CPT/HCPCS: 36415; 71045-TC; 76705-TC; 76870-TC; 80048-TC; 80053-TC; 80061-TC; 80076-TC; 80202-TC; 80305; 81000-TC; 82247-TC; 82248-TC; 82728-TC; 82746; 83540-TC; 83605-TC; 83615-TC; 83690-TC; 83735-TC; 84100-TC; 84443-TC; 85025-TC; 85730-TC; 86592; 87040-TC; 87081-TC; 87086-TC; 87536; 93307-TC; A4216; A4606; C9113; J1170; J1885; J2060; J2270; J2405; J2543; J3370; J3411; J3475; J7030; J7040; J7060; Z7610